=== PATIENT | male | born 1940 | race Caucasian/White ===

== ENCOUNTER → 2021-01-07 | Outpatient (CLI) | payer MEDICARE ==
[2014-02-28 15:15] VITALS: BP 120/64
[~2021-01-07] MED LIST: ASPI-630 PO; CARV12.511 PO; CARV3.1210 PO; DOXA2TAB2 PO; REGADENOSON 0.4 MG/5 ML DISP.SYRIN. IV ONE
--- NOTE | 2021-01-07 17:44 | RAD ---
MR#: [id number] Date of Study: 01/07/2021 Ordering Physician: ELSI AMARO, Referring Physician: DOMINICK BLAKELY Tech: KATHY Aguirre, ARRT (R) (N) APPROVED REPORT Test Type: Pharmacological Stress Nurse/Tech: Tg Tomlinson R.N. Test Indications: ischemic cardiomyapathy Cardiac History: CAD, smoker, htn Medications: See Electronic Medical Record Medical History: See Electronic Medical Record Resting Heart Rate: 55 bpm Resting Blood Pressure: 133/77mmHg Pretest Chest Pain: No chest pain Nurse/Tech Notes S1S2, lungs CTA, has a very moist loose cough -still smoves 10-15 cig. daily Pharm. Details Pharmacologic stress testing was performed using 0.4mg per 5ml of regadenoson given intravenously ove r 7-10 seconds. Stress Symptoms SOA POST EXERCISE Reason for Termination: Infusion complete Max HR: 89 bpm Max Blood Pressure: 120/52mmHg Blood Pressure response to exercise: Normal blood pressure response during stress. Heart Rate response to exercise: wnl Chest Pain: No. Arrhythmia: No. occaisional pvc ST Change: No. INTERPRETATION Stress EKG Conclusion: Resting EKG shows a sinus rhythm with nonspecific ST-T wave changes including T wave inversion in the inferior and lateral leads. The stress EKG shows no significant changes from baseline. Abnormal resting EKG but no EKG evidence of stress-induced ischemia. Imaging Protocol IMAGE PROTOCOL: Rest Tc-99m/stress Tc-99m 1 day Rest: Stress: Viability: Radiopharm.Tc99m YwdgnjbafFm61c Sestamibi Fyos86vPi 31.2mCi Img Date 01/07/2021 01/07/2021 Inj-Img [id number]. 90min. Rest Admin Site:IV - Left AntecubitalAdministrator: KATHY Aguirre, ARRT (R)(N) Stress Admin Site: IV - Left AntecubitalAdministrator: RT Iris (R)(N) STRESS DATA End Diast. Vol.122.0mlAv. Heart Rate78.0bpm End Syst. Vol.55.0mlCO Index BSA0.0L/min Myocardial Mysf742.0gEject. Pngugbwx99.0% Stress Rates Pk. Fill Rate2.26EDV/secLVtime Pk. Fill 203.11msec Pk. Empty Rate4.23ESV/secLVtime Pk. Saqvg224.18msec 1/3 Pk. Fill0.16EDV/sec Stress Scores Regional WT2.00Summed WT21.00 Regional WM0.00Summed WM5.00 LV Perfusion The stress scans show an inferior defect. The rest scans show an inferior defect. 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 Wall Motion Left ventricular ejection fraction is 54% with an inferior wall motion abnormality. LV Perf. Quant 17 Seg. SSS22.00 17 Seg. SRS21.00 17 Seg. SDS6.00 Stress Defect Extent (% LAD)14.40Rest Defect Extent (% LAD)35.60Rev. Defect Extent (% LAD)0.00 Stress Defect Extent (% LCX) 51.30Rest Defect Extent (% LCX)20.00Rev. Defect Extent (% LCX)50.00 Stress Defect Extent (% RCA)84.40Rest Defect Extent (% RCA)68.90Rev. Defect Extent (% RCA)41.10 Stress Defect Extent (% DAYANA)41.10Rest Defect Extent (% DAYANA)44.60Rev. Defect Extent (% DAYANA)21.70 Conclusion 1. Abnormal resting EKG but no EKG evidence of stress-induced ischemia. 2. Nuclear imaging show a inferior infarct with probable mild ced-infarct reversible ischemia. 3. Ejection fraction of 54% with an inferior defect. 4. Moderate risk Lexiscan nuclear stress test. Signed by : Samuel Gil MD Electronically Approved : 01/07/2021 17:43:59
== END ==
LOC: NM 10:20
PROVIDERS: ATTEND Internal Medicine Cardiovascular Disease
DX: I21.9 Acute myocardial infarction, unspecified (principal); R94.31 Abnormal electrocardiogram [ECG] [EKG]; I25.5 Ischemic cardiomyopathy
CPT/HCPCS: 78452; 93017; A9500; J2785